=== PATIENT | male | born 1980 | race African-American/Black ===

== ENCOUNTER 2021-12-20 18:11 | Emergency (ER) | payer OTHER ==
[2021-12-20 18:16] VITALS: BP 114/79; PULSE 86; TEMP 98.2; BMI 27.4
== END 2021-12-20 21:40 | disposition home or self-care (01) ==
LOC: JERFT 18:11
DX: S01.01XA Laceration without foreign body of scalp, initial encounter (principal); W22.8XXA Striking against or struck by other objects, initial encounter
CPT/HCPCS: 99281-25